=== PATIENT | female | born 1960 | race Caucasian/White ===

== ENCOUNTER 2016-10-04 12:22 | Emergency (ER) | payer OTHER ==
[~2016-10-04] VITALS: Ht 154.9 cm; Wt 88.5 kg
[2016-10-04 12:52] VITALS: Ht 154.9 cm; Wt 88.5 kg
[2016-10-04] MEDS ORDERED: ACETAMINOPHEN 325 MG TAB PO STA (14:38)
--- NOTE | 2016-10-04 15:17 | RADRPT ---
PROCEDURE: CT brain without contrast CLINICAL INDICATION: Head pain status post trauma TECHNIQUE: CT of the brain without contrast was performed on a multidetector CT scanner, with multi planar reformats. One or more of the following dose reduction techniques were used: Automated expos ure control, adjustment in mA and / or kV according to patient size, use of iterative reconstructive technique. CTDIvol = 44 mGy; DLP = 630 mGy-cm. COMPARISON: None available FINDINGS: No acute intracranial hemorrhage is identified. No extra-axial fluid collection is seen. There is no mass effect. No midline shift is identified. Ventricles and sulci are within normal limits for size and configuration. There is a small coarse calcification in the peripheral right temporal lobe measuring up to 6 mm, as well as a punctate calcification in the peripheral right frontal lobe anteriorly. Thomason-white diffe rentiation is preserved. Osseous structures are unremarkable. Mastoid air cells and imaged paranasal sinuses grossly clear. IMPRESSION: 1. No evidence of acute intracranial pathology. 2. Cerebral calcifications which may be post infectious - inflammatory, possibly sequela of neurocy sticercosis. RPTAT: VV .Cristi Humphrey MD, MD Date Time Electronically viewed and signed by .Cristi Humphrey MD, MD on 10/04/2016 15:17 .O/
--- NOTE | 2016-10-04 15:24 | RADRPT ---
PROCEDURE: CT cervical spine without contrast. CLINICAL INDICATION: Neck pain, trauma TECHNIQUE: CT of the cervical spine without contrast was performed on a multidetector CT scanner, w ith multiplanar reformats. One or more of the following dose reduction techniques were used: Automa chalino exposure control, adjustment in mA and / or kV according to patient size, use of iterative recon structive technique. CTDIvol = 22 mGy and DLP = 414 mGy-cm. COMPARISON: None available. FINDINGS: No fracture or dislocation is identified. There is there is preservation of the lordosis of the cer vical spine. Alignment is intact. The vertebral bodies are maintained in height. Intervertebral disk spaces are maintained in height. There are degenerative changes at the anterior lateral axial joint. Mild anterior spondylosis is seen at C4-5, C5-6. C2-3: There is a mild posterior disk osteophyte. There is no central canal stenosis or foraminal na rrowing. C3-4: There is a mild posterior disk osteophyte. There is no central canal stenosis or foraminal na rrowing. C4-5: There is a mild posterior disk osteophyte. There is no central canal stenosis or foraminal na rrowing. C5-6: There is a mild posterior disk osteophyte. There is facet arthropathy. There is no central c anal stenosis or foraminal narrowing. C6-7: No gross disk bulge or herniation is seen. There is no central canal stenosis or foraminal na rrowing. C7-T1: No gross disk bulge or herniation is seen. There is no central canal stenosis or foraminal n arrowing. IMPRESSION: 1. No evidence of fracture or dislocation. 2. Mild cervical spondylosis. RPTAT: VV .Cristi Humphrey MD, MD Date Time Electronically viewed and signed by .Cristi Humphrey MD, MD on 10/04/2016 15:23 .O/
[2016-10-04] MEDS ORDERED: ACET325T33 PO (15:44)
[2016-10-04] MEDS ORDERED: BACTDS PO (15:48)
[2016-10-04] MEDS ORDERED: CEPH-443 PO (15:48)
[2016-10-04 16:02] VITALS: BP 132/70; PULSE 78; RESP 16; TEMP 98.2
--- NOTE | 2016-10-04 16:38 | ERD ---
ER Documentation Chief Complaint Date/Time DATE: 10/04/16 TIME: 16:17 Chief Complaint Box fell on head at work, now dizzy and having difficulty walking VSS HPI This is a 46-year-old female who presents to the ED for anterior head and neck pain following a box falling on her at work today. 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 The patient does not know how much the box weighed. The patient immediately felt dizzy and screamed out for help. Another coworker ran over the to patient, wrapped their arms around her, and carried her down from the ladder onto to the floor. The patient said she fainted and passed out. She denies passing out onto the floor and hitting her head. She remembers fainting but she cannot recall the duration she was passed out. Her coworkers called EMS and she was transported here by ambulance. Currently, the patient complains of 5 /10 anterior forehead and neck pain that has been constant and nonradiating. She has not taken any pain medications. She has mild dizziness and right ear ringing that comes and goes since the accident this morning around 11:30am. Denies nausea, vomiting, change in vision, blurry vision, eye floaters, ear pain , chest pain, back pain. Patient denies losing bowel function when she lost consciousness. ROS All systems reviewed and are negative except as per history of present illness. Medications Home Meds Active Scripts Acetaminophen* (Tylenol*) 325 Mg Tablet, 2 TAB PO Q4 Y for PAIN AND OR ELEVATED TEMP, #30 TAB Prov:LV DOUGLAS PA-C 10/04/16 Allergies Allergies: Coded Allergies: No Known Allergy (Unverified , 10/04/16) PMhx/Soc Medical and Surgical Hx: pt denies Surgical Hx Hx Alcohol Use: No Hx Substance Use: No Hx Tobacco Use: No FmHx Family History: diabetes Physical Exam Vitals Vital Signs Date Time Temp Pulse Resp B/P Pulse Ox O2 Delivery O2 Flow Rate FiO2 10/04/16 16:02 98.2 78 16 132/70 98 Room Air 10/04/16 12:52 97.6 68 16 140/73 97 Physical Exam GENERAL: well-developed/well-nourished, in no apparent distress, non-toxic appearing HENT: NC/AT, bilateral tympanic membrane is normal with good cone of light, nares patent, oropharynx clear without exudates EYES: Conjunctiva normal, PERRLA, EOMI, no nystagmus noted NECK: Supple, no lymphadenopathy PULM: CTA bilaterally, no rales, rhonchi, or wheezing heard CV: Normal S1S2, RRR, good capillary refill GI: Soft, non-distended, normal bowel sounds, non-tender BACK: No midline tenderness, no masses, No CVAT EXT: No clubbing, cyanosis, or edema Musculoskeletal: Full ROM of neck, mild tender to palpation to cervical neck region, no gross deformities, erythema, or edema. No step-offs or deformities Neuro: Cranial nerves II-XII intact, neurovascularly intact, motor strength 5/5 in all extremities SKIN: Intact, normal turgor PSYCH: Normal mood and mentation, patient denied SI Results 24 hrs Current Medications Medications (Trade) Dose Ordered Sig/Denia Route PRN Reason Start Time Stop Time Status Last Admin Dose Admin Acetaminophen (Tylenol Tab) 650 mg ONCE STAT PO 10/04/16 14:38 10/04/16 14:40 DC 10/04/16 14:58 Procedures/MDM This is a 56-year-old female who presents to the ED for head and neck pain following a box falling on her at work today. Differentials include but not limited to concussion, post-concussion headache, intracranial bleeding/ hemorrhage, and skull fracture. More likely this post-concussionOn physical exam , she had a normal neurological exam. cranial nerves II-XII are intact. Patient has full neck ROM. She had slight dizziness during ambulation on physical exam. She had one episode of consciousness for an unknown amount of time following the box hitting her in the neck. Denies vomiting and other episodes of unconsciousness. Patient is currently alert and oriented and acting appropriately. Cervical neck CT shows no evidence of fracture or dislocation. Brain CT shows no evidence of intracranial pathology. Patient is not taking any anticoagulation medication. Differential diagnosis included but not limited to cervical neck fracture, neck sprain/strain, cervical neck dislocation, spinal compression fracture, cauda equina syndrome, hemorrhage and other emergent head and neck conditions. Patient was given Tylenol in the ED. On reexamination, the patient's head and neck pain has improved. I suspect the patient has a concussion. Patient was discharged home with Tylenol and given strict ED head precautions and to return for worsening head and neck pain, changes in mental status, neurological status, vomiting, and other emergent conditions. Patient agrees with the plan described above. CT NECK IMPRESSION: 1. No evidence of fracture or dislocation. 2. Mild cervical spondylosis. CT BRAIN IMPRESSION: 1. No evidence of acute intracranial pathology. 2. Cerebral calcifications which may be post infectious - inflammatory, possibly sequela of neurocysticercosis. Departure Diagnosis: Primary Impression: Post concussion syndrome Condition: Stable Patient Instructions: What is Mild Traumatic Brain Injury (Concussion)?, Treatment for Mild Traumatic Brain Injury (Concussion), Concussion in adults, Concussion, No Wake Up Additional Instructions: Visite a cielo frye para un EXAMEN.Regrese a estas instalaciones si no se mejora lelia esperbamos o lelia le dijimos. Regrese a estas instalaciones si no se mejora lelia esperbamos o lelia le dijimos. FOLLOW UP WITH YOUR PRIMARY CARE PHYSICIAN TOMORROW.Return to this facility if you are not improving as expected. Take all medicines as directed. Return to this facility if you are not improving as expected. LV DOUGLAS PA-C Oct 04, 2016 16:30
== END 2016-10-04 16:04 | disposition home or self-care (01) ==
LOC: EDBD 12:22 → FTE 12:22
DX: S09.90XA Unspecified injury of head, initial encounter (principal); F07.81 Postconcussional syndrome; R51 Headache; W20.8XXA Other cause of strike by thrown, projected or falling object, initial encounter; Y92.59 Other trade areas as the place of occurrence of the external cause
CPT/HCPCS: 70450; 72125